=== PATIENT | male | born 1990 | race Caucasian/White ===

== ENCOUNTER 2017-08-18 22:38 | Emergency (ER) | payer OTHER ==
[2017-08-18 22:45] VITALS: BP 165/87
[2017-08-18] MEDS ORDERED: LIDOCAINE 1% 2 ML VIAL SUBQ STA (23:53)
--- NOTE | 2017-08-18 23:53 | ED Physician Documentation ---
PD HPI UPPER EXT INJURY - Stated complaint Stated Complaint: FINGERS LACS - Chief complaint Chief Complaint: Laceration - History obtained from History obtained from: Patient - History of Present Illness Location: Right, Finger Type of injury: Laceration Timing - onset: Enter time (22:00), Today Timing - details: Abrupt onset Recently seen: Not recently seen - Additonal information Additional information: tonight while using mandolin (kitchen utensil), sustained lacerations to right 2nd and 3rd fingertips. He is right-hand dominant. He is UTD on tetanus (within 5 years) Review of Systems Skin: reports: Laceration (s) Neurologic: denies: Focal weakness, Numbness PD PAST MEDICAL HISTORY - Past Medical History Past Medical History: No - Past Surgical History Past Surgical History: Yes General: Hiatal hernia repair - Present Medications Home Medications: Ambulatory Orders Medication Instructions Recorded Confirmed No Known Home Medications [No 08/18/17 08/18/17 Known Home Medications] - Allergies Allergies/Adverse Reactions: Allergies Allergy/AdvReac Type Severity Reaction Status Date / Time No Known Drug Allergies Allergy Verified 08/18/17 22:43 - Social History Does the pt smoke?: No Smoking Status: Never smoker Does the pt drink ETOH?: Yes Does the pt have substance abuse?: No - Immunizations Immunizations are current?: Yes - POLST Patient has POLST: No PD ED PE NORMAL - Vitals Vital signs reviewed: Yes - General General: Alert and oriented X 3, No acute distress, Well developed/nourished - Neuro Neuro: No motor deficit, No sensory deficit PD ED PE EXPANDED - Extremities SORAYA UE/Hands Visual: 1 - laceration (avulsion of 0.5 cm diameter area without visible bone or adipose/connective tissue. There is slow, steady bleeding that is controllable with light direct pressure) 2 - laceration (1 cm linear laceration with exposed adipose tissue) Results - Vitals Vitals: Vital Signs - 24 hr 08/18/17 22:43 Temperature 36.6 C Heart Rate 90 Respiratory 18 Rate Blood Pressure 165/87 H O2 Saturation 100 Oxygen O2 Source Room air Procedures - Laceration (location) Finger right Length in cm: 1 Wound type: Linear Neurovascular status: Sensory intact, Motor intact, Vascular intact Tendon involvement: Tendon intact Anesthesia: Lidocaine 1% Wound Preparation: Chlorhexadine, Irrigated copiously NS, Wound explored, To the base. No: FB identified Skin layer closure: Nylon, Running, Size #-0 - enter number (5-0) Other: Patient tolerated well, No complications, Neurovascular intact, Dressing applied, Tetanus UTD PD MEDICAL DECISION MAKING - ED course Complexity details: considered differential, d/w patient Departure - Departure Disposition: 01 Home, Self Care Clinical Impression: Laceration Condition: Good Instructions: ED Laceration Amputation Finger Tip Open Tx, ED Laceration Hand Follow-Up: SANDY Villalba [Provider Group] (follow up in 1 week for removal of the stitches as well as recheck of the other wound) Discharge Date/Time: 08/19/17 01:09
[2017-08-19] MEDS ORDERED: BACITRACIN OINT TOP STA (00:38)
[2017-08-19] MEDS ORDERED: IBUPROFEN 400 MG TABLET PO STA (01:07)
[2017-08-19] MEDS ORDERED: IBUPROFEN 400 MG TABLET PO ONE (01:15)
== END 2017-08-19 01:09 | disposition home or self-care (01) ==
LOC: ED 22:38
DX: S61.210A Laceration without foreign body of right index finger without damage to nail, initial encounter (principal); S61.212A Laceration without foreign body of right middle finger without damage to nail, initial encounter; W27.4XXA Contact with kitchen utensil, initial encounter; Y93.G1 Activity, food preparation and clean up; Y92.009 Unspecified place in unspecified non-institutional (private) residence as the place of occurrence of the external cause
CPT/HCPCS: 12001; 99282; A9270

== ENCOUNTER 2017-08-27 10:50 | Emergency (ER) | payer OTHER ==
[2017-08-27 11:04] VITALS: BP 141/71
--- NOTE | 2017-08-27 13:29 | ED Physician Documentation ---
History of Present Illness - Stated complaint Stated Complaint: SUTURE REMOVAL RT FINGER - Chief complaint Chief Complaint: Wound - Additonal information Additional information: hx from pt cut finger with mandoline here for suture removal nurse removed already Review of Systems Skin: reports: Laceration (s) PD PAST MEDICAL HISTORY - Past Surgical History Past Surgical History: Yes General: Hiatal hernia repair - Present Medications Home Medications: Ambulatory Orders Medication Instructions Recorded Confirmed No Known Home Medications [No 08/18/17 08/27/17 Known Home Medications] - Allergies Allergies/Adverse Reactions: Allergies Allergy/AdvReac Type Severity Reaction Status Date / Time No Known Drug Allergies Allergy Verified 08/27/17 11:04 - Social History Does the pt smoke?: No Smoking Status: Never smoker Does the pt drink ETOH?: Yes Does the pt have substance abuse?: No - Immunizations Immunizations are current?: Yes - POLST Patient has POLST: No PD ED PE NORMAL - Extremities Extremities: Other (finger well healed, no dehisc or infection, MSV intact) Results - Vitals Vitals: Vital Signs - 24 hr 08/27/17 11:03 Temperature 36.2 C L Heart Rate 62 Respiratory 16 Rate Blood Pressure 141/71 H O2 Saturation 99 Oxygen O2 Source Room air Departure - Departure Disposition: 01 Home, Self Care Clinical Impression: Visit for suture removal Condition: Good Instructions: ED Wound Check Sutr Remove No Infec Discharge Date/Time: 08/27/17 11:36
== END 2017-08-27 11:36 | disposition home or self-care (01) ==
LOC: ED 10:50
DX: S61.219D Laceration without foreign body of unspecified finger without damage to nail, subsequent encounter (principal); W26.8XXD Contact with other sharp object(s), not elsewhere classified, subsequent encounter; Z48.02 Encounter for removal of sutures
CPT/HCPCS: 99283

== ENCOUNTER 2020-09-08 20:03 | Emergency (ER) | payer OTHER ==
[2020-09-08 20:10] VITALS: BP 166/93
[2020-09-08] MEDS ORDERED: AMOX/CLAV 875 MG/125 MG TABLET PO STA (20:16)
[2020-09-08] MEDS ORDERED: IBUPROFEN 800 MG TABLET PO STA (20:16)
--- NOTE | 2020-09-08 20:18 | ED Physician Documentation ---
PD HPI SKIN - Stated complaint Stated Complaint: DOG BITE - Chief complaint Chief Complaint: Laceration - History obtained from History obtained from: Patient - Additional information Additional information: He was running in [employer] and a dog attacked him with multiple bites to the right arm and hand. He is up-to-date on tetanus. Also has a scratch in the abdominal wall. No other injuries. Review of Systems Constitutional: reports: Reviewed and negative Eyes: reports: Reviewed and negative PD PAST MEDICAL HISTORY - Past Surgical History Past Surgical History: Yes General: Hiatal hernia repair - Present Medications Home Medications: Ambulatory Orders Medication Instructions Recorded Confirmed Amox/Clav 875/125 [Augmentin] 1 each PO Q12H #20 tablet 09/08/20 Bacitracin Zinc Oint 1 applic TOP BID #1 gm 09/08/20 - Allergies Allergies/Adverse Reactions: Allergies Allergy/AdvReac Type Severity Reaction Status Date / Time No Known Drug Allergies Allergy Verified 09/08/20 20:10 - Social History Does the pt smoke?: No Smoking Status: Never smoker Does the pt drink ETOH?: Yes Does the pt have substance abuse?: No - Immunizations Immunizations are current?: Yes - POLST Patient has POLST: No PD ED PE NORMAL - Vitals Vital signs reviewed: Yes - General General: Alert and oriented X 3, No acute distress - HEENT HEENT: PERRL, EOMI - Extremities Extremities: Other (see mdm -text box too small ) - Neuro Neuro: Alert and oriented X 3, Normal speech Results - Vitals Vitals: Vital Signs - 24 hr 09/08/20 20:09 Temperature 36.7 C Heart Rate 105 H Respiratory 18 Rate Blood Pressure 166/93 H O2 Saturation 99 Oxygen O2 Source Room air PD MEDICAL DECISION MAKING - ED course ED course: RUE exam: Multiple puncture wounds of varying depth about the right forearm, mostly dorsally, also scratches on the right index finger radial side. None of the wounds alone is more than 5 mm in length therefore none needs specific closure. There is no arterial bleeding. He has normal flexion and extension at the wrist, interosseous strength, thumb extension, extension of each individual digit, flexion of each individual digit, and nursing care attendant strength. Wounds were irrigated and dressed by the tech and nurse. He was counseled on wound care and follow-up as well as signs and symptoms that would necessitate urgent reevaluation. Departure - Departure Disposition: 01 Home, Self Care Clinical Impression: Open wound of right forearm due to dog bite Dog bite of multiple sites of right hand and fingers Qualifiers: Encounter type: initial encounter Qualified Code(s): S61.451A - Open bite of right hand, initial encounter Condition: Good Record reviewed to determine appropriate education?: Yes Instructions: ED Bite Dog Prescriptions: Amox/Clav 875/125 [Augmentin] 1 each PO Q12H #20 tablet Bacitracin Zinc Oint 1 applic TOP BID #1 gm Comments: You should wash daily with soap and water, then apply a Thick smear of the antibiotic ointment. Elevate as much as possible. Return for signs of infection including redness, swelling, drainage, fever, increased pain. [place]. Forms: Activity restrictions
[2020-09-08] MEDS ORDERED: BACITRACIN ZINC OINT 1 PACKET TOP STA (20:21)
== END 2020-09-08 20:40 | disposition home or self-care (01) ==
LOC: ED 20:03
DX: S51.851A Open bite of right forearm, initial encounter (principal); S61.451A Open bite of right hand, initial encounter; W54.0XXA Bitten by dog, initial encounter; Y93.02 Activity, running
CPT/HCPCS: 99283; A9270

== ENCOUNTER 2020-11-21 08:18 | Emergency (ER) | payer OTHER ==
--- OUTSIDE RECORDS SUMMARY | 2020-11-21 08:21 | EXTERNAL MEDICAL SUMMARY RPT | Continuity of Care Document ---
:1990 Demographics Phone Unavailable Preferred Language Finnish Marital Status Unknown Uatsdin Affiliation Unknown Race Unknown Ethnic Group Unknown Author Organization [facility] Address [address] [place] [address] Phone Allergies Encounters Medications Problems Results
[2020-11-21 08:27] VITALS: BP 136/87
--- NOTE | 2020-11-21 08:35 | ED Physician Documentation ---
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 No sick contacts or recent travel. Review of Systems Constitutional: reports: Fever Ears: denies: Ear pain Nose: reports: Rhinorrhea / runny nose, Congestion, Sinus pressure / pain Throat: denies: Sore throat Cardiac: denies: Chest pain / pressure, Palpitations PD PAST MEDICAL HISTORY - Past Medical History Past Medical History: No - Past Surgical History Past Surgical History: Yes General: Hiatal hernia repair - Present Medications Home Medications: Ambulatory Orders Medication Instructions Recorded Confirmed Amox/Clav 875/125 [Augmentin] 1 each PO Q12H #20 tablet 11/21/20 - Allergies Allergies/Adverse Reactions: Allergies Allergy/AdvReac Type Severity Reaction Status Date / Time No Known Drug Allergies Allergy Verified 11/21/20 08:27 - Social History Does the pt smoke?: No Smoking Status: Never smoker Does the pt drink ETOH?: Yes Does the pt have substance abuse?: No - Immunizations Immunizations are current?: Yes - POLST Patient has POLST: No PD ED PE NORMAL - Vitals Vital signs reviewed: Yes - General General: Alert and oriented X 3, No acute distress - HEENT HEENT: PERRL, EOMI, Pharynx benign - Neck Neck: Supple, no meningeal sign, No bony TTP - Back Back: No CVA TTP, No spinal TTP - Derm Derm: Normal color, Warm and dry - Neuro Neuro: Alert and oriented X 3, Normal speech Results - Vitals Vitals: Vital Signs - 24 hr 11/21/20 08:23 Temperature 36.3 C L Heart Rate 88 Respiratory 16 Rate Blood Pressure 136/87 H O2 Saturation 97 Oxygen O2 Source Room air PD MEDICAL DECISION MAKING - ED course ED course: We discussed that given the short time course, it is potentially likely that this would be a viral process and recommended a watch and wait prescription for antibiotics and he is understanding. The [facility] did request him to have a Covid test and this is ordered. Departure - Departure Disposition: 01 Home, Self Care Clinical Impression: Sinusitis Condition: Good Record reviewed to determine appropriate education?: Yes Instructions: ED Sinusitis Abx Tx Prescriptions: Amox/Clav 875/125 [Augmentin] 1 each PO Q12H #20 tablet Comments: I would wait until Tuesday to start the antibiotics although you can start them sooner if you prefer. Return for new or worsening symptoms. [place] You have a Covid test pending. You need to self quarantine until the result is done and negative. Do not leave your house. Do not get near anybody. The results should be done in 48 to 72 hours. We will call with a positive result, the fastest way to get a negative result for confirmation though is to go to the hospital website at [email or web address], click on the my [facility] tab and sign up for the patient portal. If any friends or family get sick and would like to have a Covid test done, but do not have signs or symptoms that would necessitate being hospitalized, we encourage testing through our coronavirus swabbing station, call [phone] to schedule an appointment. Forms: Activity restrictions, Watchful Waiting
--- OUTSIDE RECORDS SUMMARY | 2020-11-21 08:44 | EXTERNAL MEDICAL SUMMARY RPT | Continuity of Care Document ---
:1990 Demographics Phone Unavailable Preferred Language Slovenian Marital Status Unknown Rastafarian Affiliation Unknown Race Unknown Ethnic Group Unknown Author Organization [facility] Address [address] [place] [address] Phone Allergies Encounters Medications Problems Results
== END 2020-11-21 09:02 | disposition home or self-care (01) ==
LOC: ED 08:18
DX: J32.9 Chronic sinusitis, unspecified (principal); Z20.822 Contact with and (suspected) exposure to COVID-19
CPT/HCPCS: 99283; 99284